=== PATIENT | female | born 1955 | race Caucasian/White ===

== ENCOUNTER → 2016-12-02 | Outpatient (CLI) | payer OTHER ==
[~2016-12-02] MED LIST: BACTRIM,SEPT1 TABLET PO; BENADRYL25 MG PO; CELEBREX200 MG PO; CIPRO500 MG PO; COUMADIN1 MG PO; EFFEXOR XR150 MG PO; FLAGYL500 MG PO; GABAPENTIN300 MG PO; HYDROCODONE PO; IRON325 M1 PO; NORCO 5/3251 TABLET PO; OXYCODONE HCL5 MG PO; OXYCONTIN10 MG PO; PROTONIX40 MG PO; ROXICODONE5 MG PO; SENNA-TIME S T1 EACH PO; SEROQUEL100 MG PO; TRAMADOL HCL100 MG PO; TRAMADOL HCL50 MG PO; TRAMADOL-APAP1 EACH PO; TYLENOL REGULA325 MG PO; VENLAFAXINE HC150 M1 PO; XARELTO10 MG PO
== END | disposition home or self-care (01) ==
LOC: CDC 08:12
DX: Z01.810 Encounter for preprocedural cardiovascular examination (principal); M65.331 Trigger finger, right middle finger; M79.641 Pain in right hand
CPT/HCPCS: 93000

== ENCOUNTER 2017-04-25 16:51 | Emergency (ER) | payer OTHER ==
[~2017-04-25] VITALS: Ht 152.4 cm; Wt 63.4 kg
[2017-04-25 18:08] LABS: HEMATOCRIT 29.7 % (36.0-46.0); MCH 24.2 PG (29.0-34.0); MCV 83.7 FL (83-99); MEAN PLAT.VOLUME 8.7 uM^3 (9.5-12.4); PLATELET COUNT 455 K/uL (156-360); RBC DIS.WIDTH-CV 19.9 % (11.8-14.6); RBC DIS.WIDTH-SD 58.1 % (39-53); RED BLOOD COUNT 3.55 M/uL (3.80-5.20); WHITE BLOOD COUNT 8.4 K/uL (4.1-10.2)
[2017-04-25 18:40] LABS: CHLORIDE 109 mEq/L (99-109)
[2017-04-25 18:41] LABS: POTASSIUM 4.4 mEq/L (3.7-5.4); SODIUM 140 mEq/L (136-147)
[2017-04-25 18:43] LABS: GLUCOSE 105 mg/dL (70-99)
[2017-04-25 18:44] LABS: ANION GAP 9 MEQ/L (2-14)
[2017-04-25 18:45] LABS: TOTAL BILIRUBIN 0.1 mg/dL (0.0-1.0)
[2017-04-25 18:46] LABS: ALKALINE PHOSPHATASE 112 IU/L (3-129)
[2017-04-25 18:47] LABS: GFR ESTIMATE (CALCULATED) > 59 mL/min/; TROP-I INTERPRETATION NEGATIVE; TROPONIN-I < 0.01 ng/mL (0.0-0.30)
[2017-04-25 18:48] LABS: UREA NITROGEN (BUN) 18 mg/dL (9-23)
[2017-04-25 18:50] LABS: LIPASE 26 U/L (1.0-51.0)
[2017-04-25 19:39] LABS: ADD MIUA? YES; BILIRUBIN NEGATIVE; BLOOD NEGATIVE; COLOR YELLOW ((YELLOW)); GLUCOSE (STRIP) NEGATIVE; KETONES NEGATIVE; LEUKOCYTES NEGATIVE; NITRITE NEGATIVE; PROTEIN (STRIP) 30; SPECIFIC GRAVITY 1.013 (1.000-1.030); UROBILINOGEN 0.2 MG/DL (0.2-1.0)
[2017-04-25 20:20] LABS: EPITHELIAL CELLS 1+ /HPF; RED BLOOD CELLS NONE SEEN /HPF (0-5); WHITE BLOOD CELLS 0-5 /HPF (0-5)
[2017-04-25 20:21] LABS: BACTERIA RARE /HPF; CASTS PRESENT /LPF; CRYSTALS NONE SEEN; MUCUS 1+ /LPF; UCUL ADDED? NO
[2017-04-25 20:47] VITALS: BP 110/79
[2017-04-28] MEDS ORDERED: TRAMADOL HCL50 MG PO (08:11)
== END 2017-04-25 20:51 | disposition home or self-care (01) ==
LOC: EME 16:51
PROVIDERS: Emergency Medicine
DX: D51.0 Vitamin B12 deficiency anemia due to intrinsic factor deficiency (principal); K21.9 Gastro-esophageal reflux disease without esophagitis; F32.9 Major depressive disorder, single episode, unspecified; F17.200 Nicotine dependence, unspecified, uncomplicated; Z88.0 Allergy status to penicillin; Z96.641 Presence of right artificial hip joint
CPT/HCPCS: 70450; 71020; 80053; 81003; 83690; 84484; 85027; 93005; 99281; 99284; J7030

== ENCOUNTER → 2018-06-01 | Outpatient (CLI) | payer OTHER | END | disposition home or self-care (01) | LOC: NUC 07:59 | DX: I08.0 Rheumatic disorders of both mitral and aortic valves (principal); I10 Essential (primary) hypertension; Z82.49 Family history of ischemic heart disease and other diseases of the circulatory system | CPT/HCPCS: 78452; 93017; 93306; A9500 ==